=== PATIENT | male | born 1970 | race Caucasian/White ===

== ENCOUNTER 2020-05-28 07:05 | Day surgery (SDC) | payer BC ==
[~2020-05-28] VITALS: Ht 177.8 cm; Wt 73.6 kg
[2020-05-28] MEDS ORDERED: KAPSPARGO SPRIN25 MG PO (07:29)
--- NOTE | 2020-05-28 09:13 | NUR ---
05/28/20 0913 Murphy,Tessie Andres O2 TURNED OFF. PATIENT ON ROOM AIR. PATIENT SLEEPING. AWAKENS EASILY TO VOICE.
--- NOTE | 2020-05-28 09:33 | OR ---
[facility] [address] [place], [place] [address] Signed DATE OF OPERATION: 05/28/2020 SURGEON: Malu Franco MD PREOPERATIVE DIAGNOSIS: Screening. POSTOPERATIVE DIAGNOSIS: A 4 mm cecal polyp. PROCEDURE: Colonoscopy with hot biopsy. ESTIMATED BLOOD LOSS: None. INDICATIONS: Frashad is a 50-year-old gentleman, asked to see me for his initial screening colonoscopy. He has no lower GI complaints. There is no family history of colon cancer or polyps. He explained to me that his skin is in orange color because he likes to juice carrots every day. In the office, I gave him a pamphlet on colonoscopy and we looked at that together in detail. He understands the nature of the test along with the risks including, but not limited to gas bloating, crampy abdominal pain, bleeding, perforation requiring surgery, and missed diagnosis. He also understands the need for IV conscious sedation. He had expressed understanding and wished to proceed. PROCEDURE NOTE: Farshad was taken into our endoscopy suite and placed in the left lateral decubitus position. He was given 8 mg of Versed and 175 mcg of fentanyl to cover the case. A digital rectal exam was performed and this was unremarkable. His prostate is starting to become indurated and slightly enlarged. The left is more prominent than the right. The adult colonoscope was introduced and advanced under direct visualization of camera. It took a little extra sedation and abdominal compression in order to advance the scope around the splenic and hepatic flexures and down into the cecum itself. His prep was quite good. We could easily see the appendiceal orifice and the ileocecal valve. He had a tiny 4 mm polyp in the base of the cecum. It was easily removed with a hot biopsy forceps. The scope was then slowly withdrawn. We had taken several pictures throughout for photodocumentation. No other pathology throughout the entire colon or rectum. Upon retroflexion of scope, he has very tiny internal anal skin tags. After this, the gas was suctioned out. The colonoscope removed. Farshad tolerated the procedure quite well. Electronically Signed By: MALU FRANCO MD 05/28/20 0933 PATIENT NAME: FARSHAD JACOBS OPERATIVE REPORT DATE OF : 70 REPORT #: [id number] PHYSICIAN: MALU FRANCO MD PCP: DEJAN SMALLWOOD MD REPORT IS CONFIDENTIAL AND NOT TO BE RELEASED WITHOUT AUTHORIZATION [address] [address] Signed RECOMMENDATIONS: I will see Farshad back in my office in 7 to 14 days to review his results. Malu Franco MD ALB/MODL /[id number] cc: MD Dejan Tate MD Copies: MALU FRANCO MD, ROBERT D DMD ~ Electronically Signed By: MALU FRANCO MD 05/28/20 0933 PATIENT NAME: FARSHAD JACOBS OPERATIVE REPORT DATE OF : 70 REPORT #: [id number] PHYSICIAN: MALU FRANCO MD PCP: DEJAN SMALLWOOD MD REPORT IS CONFIDENTIAL AND NOT TO BE RELEASED WITHOUT AUTHORIZATION
--- NOTE | 2020-05-28 10:46 | NUR ---
PT IS ALERT, ORIENTED AND HERE FOR HIS FIRST SCOPE. PT SEEMS VERY RECEPTIVE TO INFO REGARDING EXPECTATIONS FOR TODAY. SPENT TIME ENCOURAGING PT NOT ONLY ABOUT TODAY BUT CONCERNS REGARDING HIS FUTURE. OR STAFF IN TO TAKE PT, GAVE BLESSING AND WILL FOLLOW
--- NOTE | 2020-06-02 11:40 | PATH ---
[facility] [address] [place], [place] [address] Signed SPECIMEN(S): A CECAL POLYP SPECIMEN SOURCE: A. CECAL POLYP CLINICAL HISTORY: Pre-op: Screening. Post-op: Polyp. MICROSCOPIC DESCRIPTION: Histologic sections of all submitted blocks are examined by light microscopy. These findings, together with the gross examination, support the pathologic diagnosis. FINAL PATHOLOGIC DIAGNOSIS: Colon, cecum, polyp, polypectomy: - Hyperplastic polyp. - Negative for dysplasia or malignancy. NAL:cml:C2NR GROSS DESCRIPTION: The specimen, labeled "Farshad Huntley, #1," and designated on the requisition "cecum polyp," is received in formalin and consists of one babcock soft tissue fragment that measures 0.4 cm in greatest dimension. The specimen is entirely submitted in cassette (A1). FB (under the direct supervision of a pathologist) The Gross Description was prepared using a voice recognition system. The report was reviewed for accuracy; however, sound-alike word errors, addition and/or deletions may occur. If there is any question about this report, please contact Client Services. PERFORMING LABORATORY: The technical component was performed by [facility], [address] [place] [id number] (Weapons Specialist: Seble Arreola MD; CLIA# [id number]). [facility], [address] [address] (CLIA# [id number]). Diagnostician: Cathy Okeefe MD Pathologist Electronically Signed 06/02/2020 PATIENT NAME: FARSHAD HUNTLEY PATHOLOGY DATE OF : 70 REPORT #: [id number] PHYSICIAN: [facility] PCP: DEJAN SMALLWOOD MD REPORT IS CONFIDENTIAL AND NOT TO BE RELEASED WITHOUT AUTHORIZATION [address] [address] Signed Copies: ~ PATIENT NAME: FARSHAD HUNTLEY PATHOLOGY DATE OF : 70 REPORT #: [id number] PHYSICIAN: [facility] PCP: DEJAN SMALLWOOD MD REPORT IS CONFIDENTIAL AND NOT TO BE RELEASED WITHOUT AUTHORIZATION
== END 2020-05-28 09:30 | disposition home or self-care (01) ==
LOC: DS 07:05 → OPS 07:05 → DS 08:15 → OPS 09:30
PROVIDERS: ATTEND Colon & Rectal Surgery
PROC: 0DBH8ZX Excision of Cecum, Via Natural or Artificial Opening Endoscopic, Diagnostic (ICD-10-PCS; principal; 2020-05-28 08:15)
DX: Z12.11 Encounter for screening for malignant neoplasm of colon (principal); K63.5 Polyp of colon; N40.0 Benign prostatic hyperplasia without lower urinary tract symptoms; I10 Essential (primary) hypertension; E78.5 Hyperlipidemia, unspecified; F41.9 Anxiety disorder, unspecified; Z88.6 Allergy status to analgesic agent; Z88.8 Allergy status to other drugs, medicaments and biological substances
CPT/HCPCS: 99153; G0500; J2250; J3010; J7121